=== PATIENT | male | born 2000 | race Two or more races ===

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

== ENCOUNTER 2024-12-27 23:46 | Emergency (ER) | payer MEDICAID ==
[~2024-12-27] VITALS: Ht 165.1 cm; Wt 77.3 kg
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
[2024-12-28 00:19] LABS: Hematocrit 44.7 % (41.0-53.0); Hemoglobin 15.5 g/dL (13.5-17.5); Mean Corpuscular Hemoglobin 31.5 pg (28.0-32.0); Mean Corpuscular Volume 90.9 fL (80.0-100.0); Nucleated Red Blood Cells % 0.0 %
[2024-12-28 00:29] LABS: Chloride 107 mmol/L (98-107); Potassium 3.9 mmol/L (3.5-5.1); Sodium 143 mmol/L (136-145)
[2024-12-28 00:30] LABS: Anion Gap 13 (5-15); Calcium 9.1 mg/dL (8.7-10.4); Carbon Dioxide 23 mmol/L (20-31)
[2024-12-28 00:35] LABS: BUN/Creatinine Ratio 9.8 (10.0-20.0); Glucose 99 mg/dL (74-106)
[2024-12-28 00:37] LABS: Blood Urea Nitrogen 9 mg/dL (9-23)
[2024-12-28] MEDS: LIDOCAINE 1% HCL (LOCAL ANESTH.) INJ 20ML MDV ID ONE (00:48)
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
[2024-12-28 01:03] VITALS: BP 103/74; PULSE 83; RESP 20; TEMP 98.1; O2SAT 98
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
[2024-12-28] MEDS: BACITRACIN TOP OINT 1 UD PKG TOP ONE (01:47)
== END 2024-12-28 01:48 | disposition home or self-care (01) ==
LOC: EDBD 23:46 → ER 23:46
DX: S01.112A Laceration without foreign body of left eyelid and periocular area, initial encounter (principal); S01.111A Laceration without foreign body of right eyelid and periocular area, initial encounter; S13.9XXA Sprain of joints and ligaments of unspecified parts of neck, initial encounter; R42 Dizziness and giddiness; Z79.899 Other long term (current) drug therapy; Y08.89XA Assault by other specified means, initial encounter; Y93.89 Activity, other specified; Y92.89 Other specified places as the place of occurrence of the external cause; Y99.8 Other external cause status
CPT/HCPCS: 12013; 36415; 70450; 70486; 72125; 73030; 80048; 80320; 85025; 99284; J2003